=== PATIENT | female | born 1965 | race Caucasian/White ===

== ENCOUNTER 2023-01-26 08:16 | Emergency (ER) | payer OTHER, SELFPAY ==
--- NOTE | ~2023-01-26 | CT_ITS ---
EXAM: CT scan of the head and cervical spine. INDICATION: Reason for Exam trauma TECHNIQUE: A noncontrast CT scan was performed from the skull base to the vertex. A noncontrast CT scan of the cervical spine was performed from the base of the skull through T1 at 2.5 mm and 1.25 mm collimation. Coronal and sagittal reformats were obtained at the acquisition workstation. This CT examination was performed using dose optimization techniques as appropriate, variously including the following: *Automated exposure control *Adjustment of mA and/or kV according to patient size (this includes techniques or standardized protocols for targeted exams where dose is matched to indication/reason for exam; i.e. extremities or head) *Use of iterative reconstruction technique DLP: 1539 mGy-cm COMPARISON: None FINDINGS: Head: Multiple craniotomy changes bilaterally. Clips related to presumably aneurysm clipping right suprasellar location. There is no evidence of acute intracranial hemorrhage or territorial infarction. Feliz-white matter differentiation is preserved. No abnormal mass effect or midline shift. No extra-axial fluid collections. No abnormal attenuation is demonstrated within the brain parenchyma. Scattered periventricular and deep white matter hypodensities consistent with microangiopathy. The ventricles and sulcal spaces are proportional without hydrocephalus. Proportional prominence of the ventricles and sulcal spaces. No acute osseous or soft tissue abnormalities. The mastoid air cells and visualized portions of the paranasal sinuses are notable for minor bilateral ethmoid and maxillary sinus disease.. Cervical Spine: The atlantooccipital and atlantoaxial articulations remain well aligned. Reversal of the normal cervical lordosis. Otherwise, there is anatomic alignment of the vertebral bodies and posterior elements. No evidence of acute fracture or subluxation. Diffuse moderately advanced degenerative disc disease particularly at C4-C5 to C6-C7. Posterior elements intact. No acute findings. There is no prevertebral soft tissue swelling. The thyroid gland and remaining cervical soft tissues are normal in appearance. The lung apices demonstrate no abnormalities. CT/CT cervical spine wo IV con IMPRESSION: No acute intracranial pathology. No acute fracture subluxation cervical spine. EXAMINATION: CT CHEST, ABDOMEN AND PELVIS WITH CONTRAST. CT THORACIC AND LUMBAR SPINE WITHOUT CONTRAST (REFORMATS) CT left knee CLINICAL INFORMATION: Reason for Exam trauma left-sided pain. COMPARISON: No pertinent prior studies are available for comparison TECHNIQUE: Multidetector volumetric imaging was performed from the thoracic inlet through the pubic symphysis following the administration of: Oral contrast: No Intravenous contrast: 130 mL Omnipaque [id number] No contrast reaction reported. Sagittal and coronal reformatted images were obtained on the technologist workstation. Additional imaging of the left knee In addition, thin section, high resolution reconstruction, targeted reformatted images through the thoracic and lumbar spine were obtained with coronal and sagittal high resolution reformatted images as well. This CT examination was performed using dose optimization techniques as appropriate, variously including the following: *Automated exposure control *Adjustment of mA and/or kV according to patient size (this includes techniques or standardized protocols for targeted exams w. Here dose is matched to indication/reason for exam; i.e. extremities or head) *Use of iterative reconstruction technique DLP: 1539 mGy-cm FINDINGS: CHEST: VASCULAR: The aorta is normal; no evidence of dissection, aneurysm, or traumatic aortic injury. The central pulmonary arteries enhance normally. MEDIASTINUM: No mediastinal fluid or hematoma. No hilar or mediastinal lymphadenopathy. LUNG: No nodules, mass, or focal consolidation. PLEURA: No pleural effusion. No pneumothorax. No pleural mass or thickening. CHEST WALL/AXILLA: Unremarkable. ABDOMEN/PELVIS : LIVER : The liver is normal in size, shape, and attenuation. No focal hepatic lesion or biliary ductal dilatation is present. GALLBLADDER, AND BILIARY TREE clips consistent with cholecystectomy. No biliary ductal dilatation. PANCREAS: Normal; no mass or surrounding fluid. SPLEEN: Normal size. No focal lesion. ADRENAL GLANDS: Tiny 11 mm nonspecific left adrenal nodule. KIDNEYS AND URETERS: The kidneys are normal in size, shape, and attenuation. No hydronephrosis, hydroureter, or calculi. URINARY BLADDER: No focal mass or wall thickening seen. No bladder calculi. GASTROINTESTINAL TRACT: Evidence for gastric bypass surgical changes. No obstruction. Staple line appears intact. Anastomosis appears satisfactory. Portal venous structures patent. No mesenteric lesion or acute inflammatory changes. No fluid collection or free fluid. VASCULAR STRUCTURES: There is no evidence of aortic or iliac injury. The inferior vena cava is intact. LYMPH NODES: No lymphadenopathy. PELVIC VISCERA: Surgically absent. FREE FLUID: None. ABDOMINAL WALL: Generalized eventration without any focal defect. OSSEOUS STRUCTURES AND THORACIC AND LUMBAR SPINE: No clavicle or scapula fracture. No displaced rib fracture seen. No sternal fracture seen. Right shoulder arthroplasty changes. Normal sagittal alignment of the thoracic and lumbar spine. Vertebral body and disc heights are maintained; no compression fracture. Posterior elements intact. No sacral or pelvic fracture. The visualized hips are intact. Left knee imaging demonstrates generalized subcutaneous edema and thickening. Notable degeneration of all 3 joint compartments. Previous ORIF changes about the tibial tuberosity. No joint fluid. IMPRESSION: No acute traumatic changes. No fracture. Incidental adrenal lesion on the left as above.
[2023-01-26 08:25] VITALS: BP 136/78; BP 148/72; PULSE 78; PULSE 85; RESP 16; TEMP 36.8; O2SAT 96; O2SAT 97; BMI 39.4
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
[2023-01-26] MEDS: fentaNYL citrate/PF 100 MCG/2 ML VIAL 50 MCG IVPUSH (08:49)
[2023-01-26 08:50] LABS: MANUAL DIFF FLAG NO
[2023-01-26 08:53] LABS: Basophils Absolute Auto 0.1 X10*3/uL (0.0-0.2); Basophils Percent Auto 0.6 % (0-2); Eosinophils Absolute Auto 0.2 X10*3/uL (0.0-0.4); Eosinophils Percent Auto 2.8 % (0-4); Hematocrit 38.9 % (37.0-47.0); Hemoglobin 13.2 g/dl (12.0-16.0); Imm Gran Abs Auto 0.04 X10*3/uL (0.00-0.03); Imm Gran Pct Auto 0.5 % (0.0-0.4); Lymphocytes Absolute Auto 1.8 X10*3/uL (1.2-4.9); Lymphocytes Percent Auto 22.1 % (20-40); Mean Corpuscular HGB Conc 33.9 g/dl (31.0-35.0); Mean Corpuscular Hemoglobin 31.5 pg (27.0-33.0); Mean Corpuscular Volume 92.8 fL (80.0-98.0); Mean Platelet Volume 8.7 fL (9.4-12.3); Monocytes Absolute Auto 0.8 X10*3/uL (0.1-1.2); Monocytes Percent Auto 9.6 % (2-11); Neutrophils Absolute Auto 5.4 x10*3/uL (2.0-8.3); Neutrophils Percent Auto 64.4 % (45-73); Platelet Count 277 X10*3/uL (160-400); Red Blood Count 4.19 X10*6/uL (4.20-5.50); Red Cell Distribution Width 12.8 % (11.0-16.0); White Blood Count 8.3 X10*3/uL (4.8-10.8)
[2023-01-26 09:00] LABS: INTERNATIONAL NORM RATIO 0.9 (0.9-1.1); Prothrombin Time 10.4 SEC (10.0-13.1)
[2023-01-26 09:08] LABS: Alanine Aminotransferase 47 U/L (0-31); Albumin Level 4.3 g/dL (3.5-5.0); Alkaline Phosphatase 91 U/L (39-117); Anion Gap 14 (12-20); Aspartate Amino Transferase 46 U/L (5-31); Bilirubin Total 0.3 mg/dL (0.0-1.0); Blood Urea Nitrogen 16 mg/dL (9-16); Calcium 9.3 mg/dL (8.4-10.2); Carbon Dioxide 25 mmol/L (22-29); Chloride 106 mmol/L (96-108); Creatinine Clr Calc Pharmacy 101.4; Estimated Glomerular Filt Rate > 60; Glucose Random 167 mg/dL (60-115); Potassium 4.5 mmol/L (3.3-5.1); Sodium 140 mmol/L (135-145); Total Protein 6.8 g/dL (6.5-8.0)
[2023-01-26] MEDS: iohexoL 350 MG/ML 100 ML INFUS..BTL 85 ML IV (09:45)
[2023-01-26 10:37] VITALS: BP 124/49; PULSE 72; RESP 16; O2SAT 94
[2023-01-26] MEDS: ondansetron HCL 4 MG/2 ML VIAL IVPUSH (10:46)
[2023-01-26] MEDS: HYDROmorphone HCl 0.5 MG/0.5 ML SYRINGE IVPUSH (10:46)
[2023-01-26] MEDS: Acetaminophen 325 MG TABLET 975 MG PO (11:13)
--- NOTE | 2023-01-26 12:26 | PC.NURSE ---
pt ambulated well with walker - reports pain in L leg and L abdomen, able to tolerate to independently ambulate to bathroom with device.
== END 2023-01-26 13:33 | disposition home or self-care (01) ==
PROVIDERS: Emergency Provider Emergency Medicine
DX: S80.02XA Contusion of left knee, initial encounter (principal); R51.9 Headache, unspecified; M54.6 Pain in thoracic spine; M54.2 Cervicalgia; R10.9 Unspecified abdominal pain; V43.52XA Car driver injured in collision with other type car in traffic accident, initial encounter; Y93.9 Activity, unspecified; Y92.410 Unspecified street and highway as the place of occurrence of the external cause; Y99.9 Unspecified external cause status; Z79.899 Other long term (current) drug therapy
CPT/HCPCS: 36415; 70450; 71260; 72125; 73700; 74177; 80053; 85025; 85610; 85730; 96374; 96375; 99285; J1170; J2405; J3010; Q9967